=== PATIENT | male | born 1960 | race Caucasian/White ===

== ENCOUNTER 2025-03-02 06:19 | Day surgery (SDC) | payer MEDICARE, SELFPAY | END 2025-03-02 12:14 | disposition home or self-care (01) | LOC: GI 06:19 | PROVIDERS: ATTENDING PHYSICIAN Specialist | DX: Z12.11 Encounter for screening for malignant neoplasm of colon (principal); K63.5 Polyp of colon; K63.89 Other specified diseases of intestine; Z86.0101 Personal history of adenomatous and serrated colon polyps | CPT/HCPCS: 45380; 88305 ==